=== PATIENT | male | born 1980 | race Caucasian/White ===

== ENCOUNTER → 2020-03-14 | Outpatient (CLI) | payer OTHER ==
[~2020-03-14] MED LIST: ACETAMINOPHEN325 M1 PO; ADVIL200 M1 PO; BACTRIM 400-801 EACH PO; BACTRIM DS TAB1 EACH PO; CEPHALEXIN 500500 M1 PO; DOCUSATE S100 MG/10; IBUPROFEN 200200 M1 PO; NEOSPORIN ANT70.8 GM
== END ==
LOC: LAB 12:22
PROVIDERS: ATTEND Surgery
DX: Z01.812 Encounter for preprocedural laboratory examination (principal); Z20.828 Contact with and (suspected) exposure to other viral communicable diseases

== ENCOUNTER 2020-03-18 06:47 | Day surgery (SDC) | payer OTHER ==
[~2020-03-18] VITALS: Ht 188 cm; Wt 180.5 kg
[~2020-03-18 06:47] MED LIST changes: +AMLODIPINE BESY10 MG PO; +FLONASE 0.05%50 MCG NARES; +IRBESARTAN-HCT1 EAC1 PO; +METFORMIN HCL500 M1 PO; +MULTI VITAMIN1 EACH PO; +VITAMIN D325 MC2 PO
[2020-03-18 08:47] LABS: CALCIUM 9.1 mg/dL (8.5-10.1); CREATININE 1.3 mg/dL (0.7-1.3); POTASSIUM 3.5 mmol/L (3.5-5.1)
[2020-03-18 09:00] VITALS: BP 131/87
[2020-03-18] MEDS ORDERED: NORCO 10-325 T1 EACH PO (10:46)
[2020-03-18 11:08] VITALS: BP 131/87
--- NOTE | 2020-03-20 11:14 | O ---
Formerly [facility] [place] [address] OPERATIVE REPORT Name: YADY LEE Room #: DEP [facility]#: [id number] Admission: 03/18/20 Attend Phys: Marco Sierra, Discharge: 03/18/20 Date of : 84 Report #: [id number] THIS REPORT FOR: cc: Martir Carvalho MD, Amit MD Patterson,Marco Aguillon MD ~ DATE OF SERVICE: 03/18/2020 PREOPERATIVE DIAGNOSIS: Incarcerated ventral hernia. POSTOPERATIVE DIAGNOSIS: Incarcerated ventral hernia. OPERATION: Laparoscopic repair of incarcerated ventral hernia with mesh. SURGEON: Marco Sierra MD ANESTHESIA: General. ESTIMATED BLOOD LOSS: Minimal. SPECIMEN: None. DESCRIPTION OF PROCEDURE: After informed consent was obtained, the patient was brought to the operating room and placed supine. SCDs were placed and working, preoperative antibiotics were administered, general anesthesia was induced. The abdomen was prepped and draped in the usual sterile fashion. A 5 mm incision was made in the left upper quadrant. A 5 mm trocar was placed under direct vision. Pneumoperitoneum was established. A left-sided 8 mm trocar and a right-sided 5 mm trocar was placed. The peritoneum above the umbilicus was incised. This allowed visualization of all other preperitoneal fat. He had preperitoneal fat incarcerated in a [place] cheese type defect approximately 1 cm above the umbilicus. All other preperitoneal fat was reduced. I then inserted a Bard Ventralight mesh measuring 11 cm. The total amount of defect in the abdominal wall measured approximately 2 cm. The mesh was then brought up to the abdominal wall. It was tacked with 30 absorbable tacks. I then placed a transfascial 2-0 Ethibond suture using a PMI suture passer. The defect was covered widely. The ports were removed under direct vision. The skin was closed with 4-0 Monocryl. Incisions were sealed with Steri-Strips. COMPLICATIONS: None. Formerly [facility] [address] [place] [address] OPERATIVE REPORT Name: YADY LEE Room #: DEP [facility].#: [id number] Admission: 03/18/20 Attend Phys: Marco Sierra, Discharge: 03/18/20 Date of : 84 Report #: [id number] DISPOSITION: The patient was taken to recovery in satisfactory condition. <ELECTRONICALLY SIGNED> By: Marco Sierra MD 03/20/20 1114 [id number] Marco Sierra MD /nt
== END 2020-03-18 11:45 | disposition home or self-care (01) ==
LOC: TBA 06:47 → OR 06:47
PROVIDERS: ATTEND Surgery
DX: K43.6 Other and unspecified ventral hernia with obstruction, without gangrene (principal); I10 Essential (primary) hypertension; E11.9 Type 2 diabetes mellitus without complications; G47.30 Sleep apnea, unspecified; Z98.890 Other specified postprocedural states; Z79.899 Other long term (current) drug therapy; Z88.8 Allergy status to other drugs, medicaments and biological substances
CPT/HCPCS: 50010; 50101; 50386; 50555; 50687; 50980; 52265; 52266; 53307; 54022; 56526; 57092; 62110; 62900; 70005